=== PATIENT | female | born 1945 | race Caucasian/White ===

== ENCOUNTER 2016-10-22 14:40 | Inpatient (IN) | payer OTHER, MEDICARE ==
[~2016-10-22] VITALS: Ht 160 cm; Wt 68.0 kg
[~2016-10-22 14:40] MED LIST: ALBU8I INH; ASPI1TAB7 PO; CALCTAB70 PO; CITA20 PO; CRAN125T PO; ENAL2.5 PO; FERR324T4 PO; FURO20 PO; GABA100C4 PO; LOVA40TA PO; METO25 PO; OMEG100037 PO; OMEP20TA PO; SPIR25 PO; Z.0.OXYGENDME NC; [UNRECOGNIZED DRUG - CODE] PO
[2016-10-22 14:46] VITALS: BP 111/55; PULSE 42; RESP 16; TEMP 98.2; O2SAT 96
[2016-10-22] MEDS ORDERED: CRANCAP2 PO (14:58)
[2016-10-22] MEDS ORDERED: OMEP20TA PO (14:58)
[2016-10-22] MEDS ORDERED: CITA20TA4 PO (14:58)
[2016-10-22] MEDS ORDERED: AMLO2.5T PO (14:58)
[2016-10-22] MEDS ORDERED: GABA100C4 PO (14:58)
[2016-10-22] MEDS ORDERED: CALCTAB33 PO (14:58)
[2016-10-22] MEDS ORDERED: METO25TA3 PO (14:58)
[2016-10-22] MEDS ORDERED: ASPI81CH CHEW (14:58)
[2016-10-22] MEDS ORDERED: LORA-373 PO (14:58)
[2016-10-22] MEDS ORDERED: FLUO0.05 TOPICAL (15:00)
[2016-10-22] MEDS ORDERED: VENTAER INH (15:00)
[2016-10-22] MEDS ORDERED: ATOR40TA16 PO (15:00)
[2016-10-22] MEDS ORDERED: OMEGCAP PO (15:00)
--- NOTE | 2016-10-22 15:04 | PD ---
HPI Chief Complaint: Syncope/Near-Syncope Time Seen by Provider: 14:41 Travel History International Travel<30 days: No Contact w/Intl Traveler<30days: No Traveled to known affect area: No History of Present Illness HPI 71-year-old female with a history of anemia, hypertension, who presents here after having a near syncopal episode. The patient reportedly got up from a sitting position and nearly passed out or barely passed out. The patient recalls getting dizzy. She does not recall the immediate fall. She fell to her left knee and her right ankle. When paramedics arrived and found her blood pressure normal however her heart rate was in the 40s. They gave her a 500 cc bolus. She is asymptomatic when lying on the stretcher. PFSH Past Medical History Anxiety: Yes Depression: Yes High Cholesterol: Yes Diminished Hearing: No GERD: Yes Hypertension: Yes Influenza Vaccination: Yes Menopausal: Yes : 2 Para: 2 Past Surgical History Hysterectomy: Yes Tonsillectomy: Yes Social History Alcohol Use: Yes (HOLIDAYS) Tobacco Use: Yes (1 PPD) Substance Use: No Allergies-Medications (Allergen,Severity, Reaction): Coded Allergies: No Known Allergies (Unverified , 10/22/16) Reported Meds & Prescriptions Reported Meds & Active Scripts Active Reported Fluocinonide Topical (Fluocinonide) 0.05% Cream 1 Applic TOPICAL BID Apply thin layer to affected area(s) Atorvastatin (Atorvastatin Calcium) 40 Mg Tab 40 Mg PO HS Ventolin Hfa 18 GM Inh (Albuterol Sulfate) 90 Mcg/Act Aer 1 Puff INH Q4H PRN [place]-3 Fish Oil/Vitamin (Fish Oil-Cholecalciferol) 1,000-1,000 Mg Cap 1 Cap PO DAILY Aspirin 81 Mg Chew 81 Mg CHEW DAILY Calcium 600+D Plus Minerals (Calcium Carbonate-Vitamin D W/Minerals) 600-400 Mg- Unit Tab 1 Tab PO DAILY Cranberry Urinary Comfort (Vitamins C & E) 1 Cap 1 Cap PO DAILY Citalopram (Citalopram Hydrobromide) 20 Mg Tab 20 Mg PO DAILY Gabapentin 100 Mg Cap 100 Mg PO TID Lorazepam 0.5 Mg Tab 0.5 Mg PO Q6H PRN Omeprazole 20 Mg Tab 20 Mg PO DAILY Metoprolol Tartrate 25 Mg Tab 25 Mg PO BID Amlodipine (Amlodipine Besylate) 2.5 Mg Tab 2.5 Mg PO DAILY Review of Systems Except as stated in HPI: all other systems reviewed are Neg HENT: Positive: Lightheadedness (when standing and with the episode), No: Headaches, Vertigo Cardiovascular: No: Chest Pain or Discomfort, Palpitations, Irregular Rhythm Respiratory: No: Cough, Shortness of Breath Gastrointestinal: No: Nausea, Vomiting, Diarrhea Genitourinary: No: Frequency, Dysuria Musculoskeletal: Positive: Pain (left knee and right ankle.), No: Weakness Neurologic: Positive: Dizziness (when standing, not Jaren), Syncope, No: Headache Physical Exam Narrative GENERAL: Well-developed well-nourished female resting comfortably in the bed in no acute distress. SKIN: Warm and dry. HEAD: Atraumatic. Normocephalic. EYES: No scleral icterus. No injection or drainage. ENT: No nasal bleeding or discharge. Mucous membranes pink and moist. NECK: Trachea midline. No JVD. CARDIOVASCULAR: Bradycardia with a rate in the 40s. RESPIRATORY: No accessory muscle use. Clear to auscultation. Breath sounds equal bilaterally. GASTROINTESTINAL: Abdomen soft, non-tender, nondistended. Hepatic and splenic margins not palpable. MUSCULOSKELETAL: Tenderness to the left knee without obvious deformity. There is swelling and ecchymosis to the right ankle. No obvious bony deformity. NEUROLOGICAL: Awake and alert. No obvious cranial nerve deficits. Motor grossly within normal limits. Normal speech. Data Data Last Documented VS Vital Signs Date Time Temp Pulse Resp B/P Pulse Ox O2 Delivery O2 Flow Rate FiO2 10/22/16 14:46 98.2 42 16 111/55 96 Orders Electrocardiogram (10/22/16 14:41) Complete Blood Count With Diff (10/22/16 14:41) Comprehensive Metabolic Panel (10/22/16 14:41) Creatine Kinase (Cpk) (10/22/16 14:41) Troponin I (10/22/16 14:41) Urinalysis - C+S If Indicated (10/22/16 14:41) Chest, Single Ap (10/22/16 14:41) Iv Access Insert/Monitor (10/22/16 14:41) Ecg Monitoring (10/22/16 14:41) Ankle, Limited (Ap&Lat) (10/22/16 14:56) Knee, Ltd (1 Or 2vws) (10/22/16 14:56) Urine Culture (10/22/16 15:44) Labs Laboratory Tests Test 10/22/16 10/22/16 15:04 15:44 White Blood Count 8.6 TH/MM3 Red Blood Count 4.40 MIL/MM3 Hemoglobin 13.7 GM/DL Hematocrit 41.4 % Mean Corpuscular Volume 93.9 FL Mean Corpuscular Hemoglobin 31.2 PG Mean Corpuscular Hemoglobin 33.2 % Concent Red Cell Distribution Width 13.8 % Platelet Count 243 TH/MM3 Mean Platelet Volume 9.3 FL Neutrophils (%) (Auto) 63.2 % Lymphocytes (%) (Auto) 23.6 % Monocytes (%) (Auto) 8.5 % Eosinophils (%) (Auto) 4.1 % Basophils (%) (Auto) 0.6 % Neutrophils # (Auto) 5.4 TH/MM3 Lymphocytes # (Auto) 2.0 TH/MM3 Monocytes # (Auto) 0.7 TH/MM3 Eosinophils # (Auto) 0.4 TH/MM3 Basophils # (Auto) 0.0 TH/MM3 CBC Comment DIFF FINAL Differential Comment Sodium Level 140 MEQ/L Potassium Level 3.5 MEQ/L Chloride Level 105 MEQ/L Carbon Dioxide Level 27.8 MEQ/L Anion Gap 7 MEQ/L Blood Urea Nitrogen 9 MG/DL Creatinine 0.71 MG/DL Estimat Glomerular Filtration 81 ML/MIN Rate Random Glucose 82 MG/DL Calcium Level 8.2 MG/DL Total Bilirubin 0.4 MG/DL Aspartate Amino Transf 13 U/L (AST/SGOT) Alanine Aminotransferase 14 U/L (ALT/SGPT) Alkaline Phosphatase 59 U/L Total Creatine Kinase 67 U/L Troponin I LESS THAN 0.02 NG/ML Total Protein 6.6 GM/DL Albumin 3.1 GM/DL Urine Color YELLOW Urine Turbidity HAZY Urine pH 6.5 Urine Specific [place] 1.007 Urine Protein NEG mg/dL Urine Glucose (UA) NEG mg/dL Urine Ketones NEG mg/dL Urine Occult Blood TRACE Urine Nitrite POS Urine Bilirubin NEG Urine Urobilinogen LESS THAN 2.0 MG/DL Urine Leukocyte Esterase LARGE Urine RBC 1 /hpf Urine WBC 50 /hpf Urine Squamous Epithelial 1 /hpf Cells Urine Bacteria FEW /hpf Microscopic Urinalysis Comment CULTURE INDICATED MDM Medical Decision Making Medical Screen Exam Complete: Yes Emergency Medical Condition: Yes Differential Diagnosis Cardiac syncope versus vasovagal versus electrolyte abnormalities versus anemia Right ankle contusion versus fracture. Left knee contusion versus fracture Narrative Course This is a 71-year-old female who status post syncope. The patient has bradycardia noted on EKG. The patient has a heart rate in the 40s. The patient is a symptomatically mom supine. She was also complaining of left knee and right ankle pain. Patient does have a lateral malleolus fracture on the right with nondisplacement. She is in place and a ankle splint. Given her profound break cardiac, she will be admitted to the hospitalist service. Given the bradycardia and ankle fracture, she meets inpatient criteria. Case was discussed with Dr. Rajinder Ferrari, [facility] hospitalist. Diagnosis Primary Impression: Cardiac related syncope Additional Impressions: Bradycardia with 41-50 beats per minute Ankle fracture, right Magdi Muller MD Oct 22, 2016 15:04
[2016-10-22 15:25] LABS: AUTOMATED NEUTROPHIL # 5.4 TH/MM3 (1.8-7.7); BASOPHIL % 0.6 % (0.0-2.0); EOSINOPHIL # 0.4 TH/MM3 (0-0.4); EOSINOPHIL % 4.1 % (0.0-4.0); HEMATOCRIT 41.4 % (35.0-46.0); HEMO FLAGS DIFF FINAL; LYMPH % 23.6 % (9.0-44.0); MEAN CELL VOLUME 93.9 FL (80.0-100.0); MEAN CORPUSCULAR HEMOGLOBIN 31.2 PG (27.0-34.0); MEAN CORPUSCULAR HGB CONC 33.2 % (32.0-36.0); MONO % 8.5 % (0.0-8.0); NEUT % 63.2 % (16.0-70.0); PLATELET COUNT 243 TH/MM3 (150-450); RED CELL DISTRIBUTION WIDTH 13.8 % (11.6-17.2); WHITE BLOOD COUNT 8.6 TH/MM3 (4.0-11.0)
--- NOTE | 2016-10-22 15:45 | RADRPT ---
EXAM DATE/TIME: 10/22/2016 15:19 [facility] COMPARISON: CHEST SINGLE AP, February 08, 2016, 3:22. INDICATIONS : Patient felt dizzy an hour ago and fell. MEDICAL HISTORY : Gastroesophageal reflux disease. SURGICAL HISTORY : Hysterectomy. Bilateral Hip replacement. ENCOUNTER: Initial ACUITY: 1 day PAIN SCORE: 0/10 LOCATION: Bilateral chest FINDINGS: The heart is at the upper limits in size. The lungs are clear. The visualized bony structures are ethel ssly intact. The exam is significantly improved when compared to previous. CONCLUSION: 1. Mild cardiomegaly. No acute abnormality. Improved compared to previous. Chay Vela MD on October 22, 2016 at 15:40 Board Certified Radiologist. This report was verified electronically.
--- NOTE | 2016-10-22 15:46 | RADRPT ---
EXAM DATE/TIME: 10/22/2016 15:22 [facility] COMPARISON: CHEST SINGLE AP, October 22, 2016, 15:19. INDICATIONS : Patient felt dizzy an hour ago and fell. Pain and swelling on lateral malleolus. MEDICAL HISTORY : Gastroesophageal reflux disease. SURGICAL HISTORY : Hysterectomy. Bilateral Hip replacement. ENCOUNTER: Initial ACUITY: 1 day PAIN SCORE: 0/10 LOCATION: Right Ankle FINDINGS: The examination demonstrates a nondisplaced fracture of the distal fibula. The tibia is intact. There is extensive soft tissue swelling. CONCLUSION: 1. Nondisplaced fracture of the lateral malleolus. Chay Vela MD on October 22, 2016 at 15:44 Board Certified Radiologist. This report was verified electronically.
--- NOTE | 2016-10-22 15:47 | RADRPT ---
EXAM DATE/TIME: 10/22/2016 15:23 [facility] COMPARISON: ANKLE RIGHT LIMITED (AP&LAT), October 22, 2016, 15:22. INDICATIONS : Patient felt dizzy an hour ago and fell. Pain in anterior aspect of knee. MEDICAL HISTORY : Gastroesophageal reflux disease. SURGICAL HISTORY : Hysterectomy. Bilateral Hip replacement. ENCOUNTER: Initial ACUITY: 1 day PAIN SCORE: 0/10 LOCATION: Left Knee. FINDINGS: The bony mineralization is within normal limits. No acute fracture is seen. There is no significant j oint effusion. There is atherosclerotic plaquing in the distal superficial femoral artery. CONCLUSION: 1. No acute fracture identified. Chay Vela MD on October 22, 2016 at 15:45 Board Certified Radiologist. This report was verified electronically.
[2016-10-22 16:03] LABS: ANION GAP 7 MEQ/L (5-15); AST (GOT) 13 U/L (15-37); BICARBONATE 27.8 MEQ/L (21.0-32.0); BLOOD UREA NITROGEN 9 MG/DL (7-18); CHLORIDE 105 MEQ/L (98-107); GLOMERULAR FILTRATION RATE 81 ML/MIN (>89); POTASSIUM 3.5 MEQ/L (3.5-5.1); SODIUM (NA) 140 MEQ/L (136-145)
[2016-10-22 16:08] LABS: ALKALINE PHOSPHATASE 59 U/L (45-117); ALT (GPT) 14 U/L (10-53); TOTAL BILIRUBIN ADULT 0.4 MG/DL (0.2-1.0)
[2016-10-22 16:10] LABS: BACTERIA, URINE FEW /hpf; BLOOD, URINE TRACE (NEG); COMMENT (UR) CULTURE INDICATED; CULTURE IF INDICATED CULTURE INDICATED; GLUCOSE,URINE NEG (NEG); KETONE, URINE NEG (NEG); PH, URINE 6.5 (5.0-8.5); SQUAMOUS EPITHELIAL CELL URINE 1 /hpf (0-5); URINE COLOR YELLOW (YELLW/STRAW)
[2016-10-22 16:11] LABS: NITRITE,URINE POS (NEG)
[2016-10-22 16:20] LABS: CREATINE KINASE 67 U/L (26-192)
[2016-10-22 18:00] VITALS: BP 180/72; PULSE 40; RESP 19; O2SAT 94
[2016-10-22] MEDS ORDERED: NALOXONE HCL 0.4 MG/ML AMP IV PRN (18:00)
[2016-10-22] MEDS ORDERED: SODIUM CHLORIDE 0.9% FLUSH 5 ML FLUSH FLUSH PRN (18:00)
--- NOTE | 2016-10-22 18:01 | HHI.HP ---
[facility] [place] [facility] [place] [facility] Unknown Admission Diagnosis cardiac syncope, bradycardia, right ankle fracture Diagnoses: Chief Complaint: Dizziness, lightheadedness, fall. Travel History International Travel<30 Days: No Contact w/Intl Traveler <30 Da: No Traveled to Known Affected Are: No History of Present Illness Ms. Brandon is a pleasant 71-year-old female with a history of hypertension, severe iron deficiency anemia, cardiomyopathy who presents today to the emergency department due to dizziness, lightheadedness, near syncope. At around 2 PM on 10/22/2016 patient was sitting outside and reading a book. She got up to get something from inside the house and fell dizzy and lightheaded. Subsequently she fell on her knees but did not lose consciousness. She denies any chest pain, shortness of breath, nausea or vomiting, diaphoresis. When paramedics arrived her heart rate was in the 40s. Patient denies any changes in bowel or bladder habits. She notes that in the recent months her primary care physician has increased metoprolol dosage for blood pressure. On arrival heart rate 42 blood pressure 111/55, respirations 16 , oxygen saturation 96% on room air, temperature 98.2F. EKG shows sinus bradycardia. Review of Systems ROS Limitations: Other (negative except as noted in the history of present illness) Past Family Social History Past Medical History Hypertension, hyperlipidemia, iron deficiency anemia, cardiomyopathy Past Surgical History 2 hip replacements, hysterectomy, left endarterectomy Reported Medications Fluocinonide Topical (Fluocinonide) 0.05% Cream 1 Applic TOPICAL BID Apply thin layer to affected area(s) Atorvastatin (Atorvastatin Calcium) 40 Mg Tab 40 Mg PO HS Ventolin Hfa 18 GM Inh (Albuterol Sulfate) 90 Mcg/Act Aer 1 Puff INH Q4H PRN [place]-3 Fish Oil/Vitamin (Fish Oil-Cholecalciferol) 1,000-1,000 Mg Cap 1 Cap PO DAILY Aspirin 81 Mg Chew 81 Mg CHEW DAILY Calcium 600+D Plus Minerals (Calcium Carbonate-Vitamin D W/Minerals) 600-400 Mg- Unit Tab 1 Tab PO DAILY Cranberry Urinary Comfort (Vitamins C & E) 1 Cap 1 Cap PO DAILY Citalopram (Citalopram Hydrobromide) 20 Mg Tab 20 Mg PO DAILY Gabapentin 100 Mg Cap 100 Mg PO TID Lorazepam 0.5 Mg Tab 0.5 Mg PO Q6H PRN Omeprazole 20 Mg Tab 20 Mg PO DAILY Metoprolol Tartrate 25 Mg Tab 25 Mg PO BID Amlodipine (Amlodipine Besylate) 2.5 Mg Tab 2.5 Mg PO DAILY Allergies: Coded Allergies: No Known Allergies (Unverified , 10/22/16) Family History Mother - hypertension Father - CAD status post CABG Social History Patient smokes about one pack a day. Denies drinking alcohol or using illicit drugs. Physical Exam Vital Signs Vital Signs Date Time Temp Pulse Resp B/P Pulse Ox O2 Delivery O2 Flow Rate FiO2 10/22/16 14:46 98.2 42 16 111/55 96 Physical Exam GENERAL: This is a well-nourished, well-developed patient, in no apparent distress. SKIN: No rashes, ecchymoses or lesions. Warm and dry. HEAD: Atraumatic. Normocephalic. No temporal or scalp tenderness. EYES: Pupils equal round and reactive. No injection or drainage. ENT: Nose without bleeding, purulent drainage or septal hematoma. Airway patent. NECK: Trachea midline. No lymphadenopathy. Supple, nontender, no meningeal signs. CARDIOVASCULAR: Regular rhythm, bradycardia without murmurs, gallops, or rubs. No JVD. RESPIRATORY: Moderate air entry. Breath sounds equal bilaterally. No wheezes, rales, or rhonchi. GASTROINTESTINAL: Abdomen soft, non-tender, nondistended. No guarding. MUSCULOSKELETAL: Extremities without clubbing, cyanosis, or edema. NEUROLOGICAL: Awake and alert. Cranial nerves II through XII intact. No focal neurological deficits. Normal speech. Laboratory Laboratory Tests Test 10/22/16 10/22/16 15:04 15:44 White Blood Count 8.6 Red Blood Count 4.40 Hemoglobin 13.7 Hematocrit 41.4 Mean Corpuscular Volume 93.9 Mean Corpuscular Hemoglobin 31.2 Mean Corpuscular Hemoglobin 33.2 Concent Red Cell Distribution Width 13.8 Platelet Count 243 Mean Platelet Volume 9.3 Neutrophils (%) (Auto) 63.2 Lymphocytes (%) (Auto) 23.6 Monocytes (%) (Auto) 8.5 Eosinophils (%) (Auto) 4.1 Basophils (%) (Auto) 0.6 Neutrophils # (Auto) 5.4 Lymphocytes # (Auto) 2.0 Monocytes # (Auto) 0.7 Eosinophils # (Auto) 0.4 Basophils # (Auto) 0.0 CBC Comment DIFF FINAL Differential Comment Sodium Level 140 Potassium Level 3.5 Chloride Level 105 Carbon Dioxide Level 27.8 Anion Gap 7 Blood Urea Nitrogen 9 Creatinine 0.71 Estimat Glomerular Filtration 81 Rate Random Glucose 82 Calcium Level 8.2 Total Bilirubin 0.4 Aspartate Amino Transf 13 (AST/SGOT) Alanine Aminotransferase 14 (ALT/SGPT) Alkaline Phosphatase 59 Total Creatine Kinase 67 Troponin I LESS THAN 0.02 Total Protein 6.6 Albumin 3.1 Urine Color YELLOW Urine Turbidity HAZY Urine pH 6.5 Urine Specific [place] 1.007 Urine Protein NEG Urine Glucose (UA) NEG Urine Ketones NEG Urine Occult Blood TRACE Urine Nitrite POS Urine Bilirubin NEG Urine Urobilinogen LESS THAN 2.0 Urine Leukocyte Esterase LARGE Urine RBC 1 Urine WBC 50 Urine Squamous Epithelial 1 Cells Urine Bacteria FEW Microscopic Urinalysis Comment CULTURE INDICATED Date/Time Procedure Status Source Growth 10/22/16 15:44 Urine Culture Received Urine Clean Catch Pending Result Diagram: 10/22/16 1504 10/22/16 1504 Imaging Last Impressions Knee X-Ray 10/22/16 1456 Signed Impressions: Service Date/Time: Saturday, October 22, 2016 15:23 - CONCLUSION: 1. No acute fracture identified. Chay Vela MD Ankle X-Ray 10/22/16 1456 Signed Impressions: Service Date/Time: Saturday, October 22, 2016 15:22 - CONCLUSION: 1. Nondisplaced fracture of the lateral malleolus. Chay Vela MD Chest X-Ray 10/22/16 1441 Signed Impressions: Service Date/Time: Saturday, October 22, 2016 15:19 - CONCLUSION: 1. Mild cardiomegaly. No acute abnormality. Improved compared to previous. Chay Vela MD Assessment and Plan Problem List: (1) Symptomatic bradycardia ICD Code: R00.1 Status: Acute (2) Hypertension ICD Code: I10 Status: Acute (3) HLD (hyperlipidemia) ICD Code: E78.5 Status: Acute (4) COPD (chronic obstructive pulmonary disease) ICD Code: J44.9 Status: Acute Assessment and Plan Ms. Brandon is a pleasant 71-year-old female with a history of Takotsubo cardiomyopathy, hypertension, hyperlipidemia, COPD who presents to the emergency department today due to dizziness, lightheadedness, near syncope at around 2 PM on 10/22/2016. Patient's heart rate was in the 40s per EMS. - Symptomatic bradycardia - Likely due to metoprolol. Patient takes metoprolol 25 mg twice a day for hypertension. - We'll discontinue metoprolol. There is no indication for beta sina. - Atropine when necessary for symptomatic bradycardia. - If heart rate does not improve, we may need to consult Cardiology. - History of Takotsubo cardiomyopathy - currently resolved per patient. - Hypertension - increase amlodipine from 2.5 mg to 5 mg daily. If necessary we 'll add lisinopril. - Hyperlipidemia - continue atorvastatin 40 mg daily at bedtime - COPD - currently stable. DuoNeb when necessary. Full code. Lovenox. Discharge plan: If heart rate remains in the reasonable range, we should be able to discharge patient on 10/23/2016. Physician Certification 2 Midnight Certification Type: Admission for Inpatient Services Order for Inpatient Services The services are ordered in accordance with Medicare regulations or non- Medicare payer requirements, as applicable. In the case of services not specified as inpatient-only, they are appropriately provided as inpatient services in accordance with the 2-midnight benchmark. Estimated LOS (days): 2 days is the estimated time the patient will need to remain in the hospital, assuming treatment plan goals are met and no additional complications. Post-Hospital Plan: Divina Martinez DO Oct 22, 2016 18:01
[2016-10-22] MEDS ORDERED: ATROPINE SULFATE 1 MG/ML VIAL IV PUSH PRN (18:15)
[2016-10-22] MEDS: SODIUM CHLOR 0.9% 1000 ML INJ 1,000 ML IV SCH (18:42)
[2016-10-22] MEDS ORDERED: ACETAMINOPHEN 325 MG TAB PO PRN (19:00)
[2016-10-22] MEDS ORDERED: LORazepam 0.5 MG TAB PO PRN (19:00)
[2016-10-22] MEDS ORDERED: RESP: ALBUTEROL 2.5 MG/IPRATROPIUM 0.5 MG NEB (PRN) NEB (19:00)
[2016-10-22] MEDS ORDERED: MAGNESIUM HYDROXIDE SUSP 30 ML CUP PO PRN (19:00)
[2016-10-22 20:00] VITALS: O2SAT 93
[2016-10-22] MEDS ORDERED: ALBUTEROL SULFATE 90 MCG/ACT HFA 8 GM INHALER INH PRN (20:00)
[2016-10-22] MEDS ORDERED: BISACODYL 10 MG SUPP PR PRN (20:00)
[2016-10-22] MEDS ORDERED: ONDANSETRON HCL 4 MG/2 ML VIAL IVP PRN (20:00)
[2016-10-22] MEDS ORDERED: ATORVASTATIN 40 MG TAB PO SCH (21:00)
[2016-10-22] MEDS ORDERED: ENOXAPARIN SODIUM 40 MG/0.4 ML SYRINGE SQ SCH (21:00)
[2016-10-22] MEDS: SODIUM CHLORIDE 0.9% FLUSH 5 ML FLUSH FLUSH SCH (21:09)
[2016-10-22 21:40] LABS: MAGNESIUM 1.8 MG/DL (1.5-2.5)
[2016-10-22] MEDS: GABAPENTIN 100 MG CAP PO SCH (21:59)
[2016-10-22 22:03] VITALS: BP 133/68; PULSE 50; RESP 22; O2SAT 97
[2016-10-23] VITALS (7 sets, daily range): BP systolic 119–153; BP diastolic 57–70; PULSE 49–60; RESP 17–20; TEMP 96.9–100.4; O2SAT 93–98
[2016-10-23] MEDS: SODIUM CHLOR 0.9% 1000 ML INJ 1,000 ML IV SCH ×2 (03:58→13:58)
[2016-10-23 06:06] LABS: AUTOMATED NEUTROPHIL # 8.5 TH/MM3 (1.8-7.7); BASOPHIL % 0.4 % (0.0-2.0); EOSINOPHIL # 0.3 TH/MM3 (0-0.4); EOSINOPHIL % 2.8 % (0.0-4.0); HEMATOCRIT 37.6 % (35.0-46.0); HEMO FLAGS DIFF FINAL; LYMPH % 16.1 % (9.0-44.0); LYMPHOCYTE # 1.9 TH/MM3 (1.0-4.8); MEAN CELL VOLUME 92.9 FL (80.0-100.0); MEAN CORPUSCULAR HEMOGLOBIN 30.6 PG (27.0-34.0); MEAN CORPUSCULAR HGB CONC 32.9 % (32.0-36.0); MONO % 7.1 % (0.0-8.0); NEUT % 73.6 % (16.0-70.0); PLATELET COUNT 210 TH/MM3 (150-450); RED BLOOD COUNT 4.04 MIL/MM3 (4.00-5.30); RED CELL DISTRIBUTION WIDTH 13.4 % (11.6-17.2); WHITE BLOOD COUNT 11.6 TH/MM3 (4.0-11.0)
[2016-10-23 06:33] LABS: BICARBONATE 26.9 MEQ/L (21.0-32.0); POTASSIUM 3.4 MEQ/L (3.5-5.1)
[2016-10-23] MEDS: GABAPENTIN 100 MG CAP PO SCH ×2 (08:36→13:49)
[2016-10-23] MEDS: SODIUM CHLORIDE 0.9% FLUSH 5 ML FLUSH FLUSH SCH (08:36)
[2016-10-23] MEDS ORDERED: CITALOPRAM HYDROBROMIDE 20 MG TAB PO SCH (09:00)
[2016-10-23] MEDS ORDERED: ASPIRIN 81 MG CHEW TAB CHEW SCH (09:00)
[2016-10-23] MEDS ORDERED: PANTOPRAZOLE SOD 20 MG DELAYED RELEASE TAB PO SCH (09:00)
[2016-10-23] MEDS ORDERED: CALCIUM/VITAMIN D 250 MG/125 U TAB PO SCH (09:00)
[2016-10-23] MEDS ORDERED: amLODIPine BESYLATE 5 MG TAB PO SCH ×2 (09:00)
[2016-10-23] MEDS ORDERED: oxyCODONE/ACETAMINOPHEN 5 MG/325 MG TAB PO PRN (10:45)
--- NOTE | 2016-10-23 11:13 | HHI.PR ---
Subjective Remarks Follow-up for bradycardia, fall. Patient is doing well. Denies any chest pain , shortness of breath, dizziness, lightheadedness. Denies any fever or chills. She is unable to walk due to knee and ankle injury from her fall. Tolerating diet well. Objective Vitals Vital Signs Date Time Temp Pulse Resp B/P Pulse Ox O2 Delivery O2 Flow Rate FiO2 10/23/16 08:21 94 Nasal Cannula 2.00 10/23/16 08:00 Nasal Cannula 2.00 10/23/16 08:00 49 10/23/16 08:00 97.4 55 18 148/66 95 10/23/16 04:00 99.0 54 20 131/61 93 10/23/16 02:45 88 Nasal Cannula 2.00 10/23/16 02:15 100.2 60 17 153/70 93 10/23/16 01:15 100.4 57 18 150/67 94 10/23/16 01:15 94 Room Air 10/22/16 22:03 50 22 133/68 97 Room Air 10/22/16 20:00 93 10/22/16 18:00 40 19 180/72 94 10/22/16 14:46 98.2 42 16 111/55 96 I/O 10/22/16 10/22/16 10/22/16 10/23/16 10/23/16 10/23/16 07:00 15:00 23:00 07:00 15:00 23:00 Intake Total 820 ml Balance 820 ml Intake Oral 220 ml IV Total 600 ml # Voids 7 # Bowel Movements 0 Result Diagram: 10/23/16 0541 10/23/16 0541 Imaging Last Impressions Knee X-Ray 10/22/161455 Signed Impressions: Service Date/Time: Saturday, October 22, 2016 15:23 - CONCLUSION: 1. No acute fracture identified. Chay Vela MD Ankle X-Ray 10/22/16 1456 Signed Impressions: Service Date/Time: Saturday, October 22, 2016 15:22 - CONCLUSION: 1. Nondisplaced fracture of the lateral malleolus. Chay Vela MD Chest X-Ray 10/22/16 1441 Signed Impressions: Service Date/Time: Saturday, October 22, 2016 15:19 - CONCLUSION: 1. Mild cardiomegaly. No acute abnormality. Improved compared to previous. Chay Vela MD Objective Remarks GENERAL: Alert oriented 3 NAD. SKIN: Warm and dry. HEAD: Normocephalic. EYES: No scleral icterus. No injection or drainage. NECK: Supple, trachea midline. No JVD or lymphadenopathy. CARDIOVASCULAR: Regular rhythm, bradycardic without murmurs, gallops, or rubs. RESPIRATORY: Breath sounds equal bilaterally. No accessory muscle use. GASTROINTESTINAL: Abdomen soft, non-tender, nondistended. MUSCULOSKELETAL: No cyanosis, or edema. Right ankle sprain present. BACK: Nontender without obvious deformity. No CVA tenderness. Procedures None A/P Problem List: (1) Symptomatic bradycardia ICD Code: R00.1 Status: Acute (2) Hypertension ICD Code: I10 Status: Acute (3) HLD (hyperlipidemia) ICD Code: E78.5 Status: Acute (4) COPD (chronic obstructive pulmonary disease) ICD Code: J44.9 Status: Acute Assessment and Plan Ms. Brandon is a pleasant 71-year-old female with a history of Takotsubo cardiomyopathy, hypertension, hyperlipidemia, COPD who presents to the emergency department today due to dizziness, lightheadedness, near syncope at around 2 PM on 10/22/2016. Patient's heart rate was in the 40s per EMS. - Symptomatic bradycardia - Likely due to metoprolol. Patient takes metoprolol 25 mg twice a day for hypertension. - discontinued metoprolol. There is no indication for beta sina. - Atropine when necessary for symptomatic bradycardia. - Will get PT to see patient. - History of Takotsubo cardiomyopathy - currently resolved per patient. - Hypertension - increase amlodipine from 2.5 mg to 5 mg daily. If necessary we 'll add lisinopril. - Hyperlipidemia - continue atorvastatin 40 mg daily at bedtime - COPD - currently stable. DuoNeb when necessary. Full code. Alli. Divina Smith DO Oct 23, 2016 11:12 am
--- NOTE | 2016-10-23 11:44 | EKG ---
Date Performed: 10/22/2016 Time Performed: 14:55:27 PTAGE: 71 years EKG: SINUS BRADYCARDIA ST DEVIATION AND MODERATE T-WAVE ABNORMALITY, CONSIDER LATERAL ISCHEMIA A BNORMAL ECG PREVIOUS TRACING : 02/12/2016 07.06 DOCTOR: Morgan Dawkins Interpretating Date/Time 10/23/2016 11:43:02
[2016-10-23] MEDS ORDERED: AMLO5 PO (14:41)
--- NOTE | 2016-10-23 14:44 | HHI.FF ---
Face to Face Verification Diagnosis: (1) Symptomatic bradycardia (2) Hypertension Physical Therapy Order: Evaluate and Treat, Improve ambulation, Strength and gait training Home Health Nursing Order: Signs/symptoms of disease process Nursing assessment with vital signs I have seen patient Malaika Brandon on 10/23/16. My clinical findings support the need for the requested home health care services because: Deconditioned w/ increased weakness Limited ability to care for self Need for psychosocial assistance High risk of falls I certify that my clinical findings support that this patient is homebound because: Unsteady gait/balance Unsafe to leave home unassisted Unable to use public transportation Divina Smith DO Oct 23, 2016 2:44 pm
== END 2016-10-23 17:57 | disposition home or self-care (01) | DRG 309 ==
LOC: NEPA 14:40 → NEDA 17:05 → NEDH 21:11
PROVIDERS: ADMIT Hospitalist; ATTEND Hospitalist
DX: R00.1 Bradycardia, unspecified (principal); I51.81 Takotsubo syndrome; I42.9 Cardiomyopathy, unspecified; J44.9 Chronic obstructive pulmonary disease, unspecified; I10 Essential (primary) hypertension; E78.5 Hyperlipidemia, unspecified; K21.9 Gastro-esophageal reflux disease without esophagitis; S82.63XA Displaced fracture of lateral malleolus of unspecified fibula, initial encounter for closed fracture; T44.7X5A Adverse effect of beta-adrenoreceptor antagonists, initial encounter; F17.200 Nicotine dependence, unspecified, uncomplicated; Z96.643 Presence of artificial hip joint, bilateral; W19.XXXA Unspecified fall, initial encounter; Y92.9 Unspecified place or not applicable
CPT/HCPCS: 71010; 73560; 73600; 80048; 80053; 81001; 82550; 83735; 84443; 84484; 85025; 87077; 87086; 87186; 93005; J1650; J7030